=== PATIENT | male | born 1955 | race African-American/Black ===

== ENCOUNTER → 2018-01-15 | Outpatient (CLI) | payer OTHER ==
--- NOTE | 2018-01-16 10:53 | Diagnostic Imaging Report ---
EXAMINATION: MRI of the cervical spine without contrast HISTORY: Neck pain after heavy lifting for the past 2 weeks COMPARISON: None available TECHNIQUE: Sagittal T1, T2, STIR; axial T2, gradient echo. FINDINGS: Curvature: Normal lordosis. Vertebrae: No evidence of neoplasm, infection, or fracture. Foramen magnum: No mass, Chiari malformation, or basilar invagination. Spinal Cord: Normal size and signal intensity. Soft Tissues: Unremarkable. Degenerative changes: C1-C2: Unremarkable. C2-C3: Unremarkable. C3-C4: Mild facet processes without significant canal or foraminal stenoses C4-C5: Minimal facet arthrosis without canal or foraminal stenoses C5-C6: Slightly asymmetric to the left small disc osteophyte complex formation, mild uncovertebral and facet arthrosis. Mild foraminal stenosis mainly on the left. C6-C7: Mild symmetric disc bulge, mild bilateral uncovertebral and facet arthrosis. Mild left foraminal stenoses C7-T1: Unremarkable. IMPRESSION: 1. 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 2. Otherwise no significant degenerative changes, spinal canal or foraminal stenosis. Signed by: Dr. Echo Reddy M.D. on 01/16/2018 10:48 AM
== END ==
LOC: MRI 15:54
PROVIDERS: ATTEND Family Medicine
DX: M54.2 Cervicalgia (principal)
CPT/HCPCS: 72141